=== PATIENT | male | born 1955 | race Caucasian/White ===

== ENCOUNTER 2019-02-23 18:10 | Emergency (ER) | payer MEDICARE, OTHER ==
[2019-02-23] MEDS: LORAZEPAM 1 MG TAB PO (21:40)
[2019-02-23 22:26] LABS: TROPONIN-I < 0.012 ng/ml (0.000-0.120)
[2019-02-23] MEDS ORDERED: KETOROLAC 30 MG INJ IM (22:54)
[2019-02-23] MEDS: IBUPROFEN 600 MG TAB PO ×2 (22:59→23:05)
[2019-02-23] MEDS: KETOROLAC 15 MG INJ IV (23:00)
== END 2019-02-23 23:18 | disposition home or self-care (01) ==
LOC: E/R 23:18
DX: I10 Essential (primary) hypertension (principal); R60.0 Localized edema; I20.9 Angina pectoris, unspecified; Z79.82 Long term (current) use of aspirin
CPT/HCPCS: 84484; 93005; 96374; 99284-25

== ENCOUNTER 2019-02-24 00:45 | Emergency (ER) | payer MEDICARE | END 2019-02-24 06:15 | disposition home or self-care (01) | LOC: E/R 00:45 | DX: R07.9 Chest pain, unspecified (principal); Z79.01 Long term (current) use of anticoagulants; Z79.82 Long term (current) use of aspirin | CPT/HCPCS: 99282 ==

== ENCOUNTER 2019-03-04 22:18 | Inpatient (IN) | payer MEDICARE, OTHER, MEDICAID ==
[2019-03-04 23:42] LABS: ADD MAN DIFF? NO
[2019-03-04 23:45] LABS: BASOPHILS % 0.3 % (0.0-2.0); EOSINOPHILS # 0.1 10^3/ul (0.0-0.5); EOSINOPHILS % 2.1 % (0.0-7.0); HEMATOCRIT 34.2 % (42.0-52.0); HEMOGLOBIN 10.2 g/dl (14.0-18.0); LYMPHOCYTES # 0.6 10^3/ul (0.8-2.9); LYMPHOCYTES % 9.4 % (15.0-51.0); MEAN CORPUSCULAR HEMOGLOBIN 22.8 pg (29.0-33.0); MEAN CORPUSCULAR HGB CONC 29.8 g/dl (32.0-37.0); MEAN CORPUSCULAR VOLUME 76.3 fl (82.0-101.0); MEAN PLATELET VOLUME 9.3 fl (7.4-10.4); MONOCYTE # 0.9 10^3/ul (0.3-0.9); MONOCYTES % 13.5 % (0.0-11.0); NEUTROPHILS % 74.6 % (39.0-77.0); POSITIVE DIFF @See below; RED BLOOD COUNT 4.48 10^6/ul (4.70-6.10); RED CELL DISTRIBUTION WIDTH 18.2 % (11.5-14.5)
[2019-03-04 23:45] LABS: WHITE BLOOD COUNT 6.7 10^3/ul (4.8-10.8)
[2019-03-04] MEDS: ASPIRIN 325 MG TAB PO (23:56)
[2019-03-04] MEDS: NITROGLYCERIN 2% 1 GM OINT PKT TD (23:56)
[2019-03-04 23:59] LABS: PLATELET COUNT 213 10^3/UL (140-415)
[2019-03-05 00:03] LABS: ANION GAP 9 (5-13); BLOOD UREA NITROGEN 21 mg/dl (7-20); CALCIUM 9.4 mg/dl (8.4-10.2); CARBON DIOXIDE 26 mmol/L (21-31); CHLORIDE 102 mmol/L (97-110); CREATININE 1.06 mg/dl (0.61-1.24); Estimated GFR > 60 mL/min (>60); GLUCOSE 104 mg/dl (70-220); POTASSIUM 4.4 mmol/L (3.5-5.1); SODIUM 137 mmol/L (135-144)
[2019-03-05 00:14] LABS: TROPONIN-I < 0.012 ng/ml (0.000-0.120)
[2019-03-05] MEDS ORDERED: ONDANSETRON 4 MG INJ IV ×2 (01:00→02:00)
[2019-03-05] MEDS: SOD CHLORIDE 0.9% 1,000 ML IV ×2 (01:45→14:02)
[2019-03-05] MEDS ORDERED: DOCUSATE SODIUM 100 MG CAP PO (02:00)
[2019-03-05] MEDS ORDERED: NACL 0.9% 3 ML SYG IV (02:00)
[2019-03-05] MEDS ORDERED: NITROGLYCERIN (SL) 0.4 MG TAB SL (02:00)
[2019-03-05] MEDS ORDERED: BISACODYL (EC) 5 MG TAB PO (02:00)
[2019-03-05] MEDS ORDERED: ACETAMINOPHEN 325 MG TAB PO (02:00)
[2019-03-05] MEDS: ACETAMINOPHEN 325 MG TAB PO (02:04)
[2019-03-05] MEDS: KETOROLAC 15 MG INJ IV (02:49)
[2019-03-05 05:23] LABS: CREATINE KINASE 425 IU/L (23-200)
[2019-03-05 05:24] LABS: CHOL/HDL RATIO 3.2 RATIO; HDL CHOLESTEROL 34 mg/dl (30-78); LDL CHOLESTEROL,CALCULATED 58 mg/dl; TRIGLYCERIDES 100 mg/dl (0-149)
[2019-03-05 05:24] LABS: CHOLESTEROL 112 mg/dl (100-200)
[2019-03-05 05:25] LABS: HEMOGLOBIN A1C 5.7 % (0-5.9)
[2019-03-05 05:35] LABS: CK INDEX 0.9; CK-MB 3.85 ng/ml (0.0-2.4); TROPONIN-I < 0.012 ng/ml (0.000-0.120)
[2019-03-05] MEDS ORDERED: LIDOCAINE 1% (MPF) 5 ML VIAL SC (06:00)
[2019-03-05] MEDS: ASPIRIN 81 MG TAB PO (08:16)
[2019-03-05] MEDS: AMLODIPINE 10 MG TAB PO (08:16)
[2019-03-05] MEDS ORDERED: ASPIRIN 81 MG TAB PO (09:00)
[2019-03-05] MEDS ORDERED: METOPROLOL 100 MG TAB PO (09:00)
[2019-03-05] MEDS ORDERED: PRASUGREL HYDROCHLORIDE 10 MG TABLET PO (13:00)
[2019-03-05] MEDS ORDERED: PRASUGREL HCL 5 MG TABLET PO (13:00)
[2019-03-05] MEDS: RANOLAZINE (SR) 500 MG TAB PO ×2 (13:10→20:24)
[2019-03-05] MEDS: CLOPIDOGREL 75 MG TAB PO (13:10)
[2019-03-05] MEDS: ISOSORBIDE MONONITRATE(SR)60 MG TAB PO (13:10)
[2019-03-05] MEDS: LISINOPRIL 10 MG TAB PO (13:11)
[2019-03-05 18:21] LABS: CREATINE KINASE 404 IU/L (23-200)
[2019-03-05 18:33] LABS: CK INDEX 0.9; TROPONIN-I < 0.012 ng/ml (0.000-0.120)
[2019-03-05 18:42] LABS: CK-MB 3.79 ng/ml (0.0-2.4)
[2019-03-05] MEDS: ATORVASTATIN 80 MG TAB PO (20:25)
[2019-03-05] MEDS: traMADol 50 MG TAB PO (20:25)
[2019-03-06] MEDS: POLYETHYLENE GLYCOL 17 GM PACKET PO ×2 (00:51→09:00)
[2019-03-06] MEDS: SOD CHLORIDE 0.9% 1,000 ML IV ×2 (02:32→15:02)
[2019-03-06 07:59] LABS: ADD MAN DIFF? NO
[2019-03-06 08:08] LABS: BASOPHILS % 0.2 % (0.0-2.0); EOSINOPHILS # 0.1 10^3/ul (0.0-0.5); EOSINOPHILS % 2.7 % (0.0-7.0); HEMOGLOBIN 8.9 g/dl (14.0-18.0); LYMPHOCYTES # 0.6 10^3/ul (0.8-2.9); LYMPHOCYTES % 15.7 % (15.0-51.0); MEAN CORPUSCULAR HEMOGLOBIN 23.1 pg (29.0-33.0); MEAN CORPUSCULAR HGB CONC 29.7 g/dl (32.0-37.0); MEAN CORPUSCULAR VOLUME 77.9 fl (82.0-101.0); MEAN PLATELET VOLUME 9.7 fl (7.4-10.4); MONOCYTE # 0.6 10^3/ul (0.3-0.9); MONOCYTES % 15.7 % (0.0-11.0); NEUTROPHIL # 2.6 10^3/ul (1.6-7.5); NEUTROPHILS % 65.2 % (39.0-77.0); PLATELET COUNT 192 10^3/UL (140-415); RED BLOOD COUNT 3.85 10^6/ul (4.70-6.10); RED CELL DISTRIBUTION WIDTH 18.5 % (11.5-14.5)
[2019-03-06 08:26] LABS: IRON 31 ug/dl (35-150)
[2019-03-06 08:31] LABS: ALANINE AMINOTRANSFERASE 28 IU/L (13-69); ALBUMIN 3.6 g/dl (3.3-4.9); ALBUMIN/GLOBULIN RATIO 1.33; ALKALINE PHOSPHATASE 116 IU/L (42-121); ANION GAP 9 (5-13); ASPARTATE AMINO TRANSFERASE 24 IU/L (15-46); BILIRUBIN,INDIRECT 0.1 mg/dl (0-1.1); BILIRUBIN,TOTAL 0.1 mg/dl (0.2-1.3); BLOOD UREA NITROGEN 24 mg/dl (7-20); CALCIUM 9.4 mg/dl (8.4-10.2); CARBON DIOXIDE 23 mmol/L (21-31); CHLORIDE 109 mmol/L (97-110); Estimated GFR > 60 mL/min (>60); GLUCOSE 128 mg/dl (70-220); POTASSIUM 4.2 mmol/L (3.5-5.1); SODIUM 141 mmol/L (135-144); TOTAL PROTEIN 6.3 g/dl (6.1-8.1)
[2019-03-06 08:36] LABS: % IRON SATURATION 8 % SAT (22-52); TOTAL IRON BINDING CAPACITY 407 ug/dl (241-421)
[2019-03-06] MEDS: ISOSORBIDE MONONITRATE(SR)60 MG TAB PO (08:59)
[2019-03-06] MEDS: LISINOPRIL 10 MG TAB PO (09:00)
[2019-03-06] MEDS: ASPIRIN 81 MG TAB PO (09:00)
[2019-03-06] MEDS: CLOPIDOGREL 75 MG TAB PO (09:00)
[2019-03-06] MEDS: AMLODIPINE 10 MG TAB PO (09:00)
[2019-03-06] MEDS: RANOLAZINE (SR) 500 MG TAB PO ×2 (09:00→20:31)
[2019-03-06 09:03] LABS: FERRITIN 8.6 ng/ml (11.1-264.0)
[2019-03-06] MEDS: SOD FERRIC GLUC COMPLX 125 MG in SOD CHLORIDE 0.9% 100 ML IVPB (17:19)
[2019-03-06] MEDS: AL HYDROX/MG HYDROX/SIMETH 30 ML CUP PO (17:54)
[2019-03-06] MEDS: ATORVASTATIN 80 MG TAB PO (20:31)
[2019-03-07] MEDS: predniSONE 50 MG TAB PO ×2 (00:39→06:32)
[2019-03-07] MEDS: ONDANSETRON 4 MG TAB PO (01:31)
[2019-03-07] MEDS: SOD CHLORIDE 0.9% 1,000 ML IV (03:32)
[2019-03-07] MEDS ORDERED: DIAZEPAM 5 MG TAB PO (12:00)
[2019-03-07] MEDS ORDERED: DIPHENHYDRAMINE 50 MG CAP PO (12:00)
[2019-03-07] MEDS ORDERED: predniSONE 50 MG TAB PO (12:30)
== END 2019-03-07 07:00 | disposition left against medical advice (07) | DRG 303 ==
LOC: E/R 22:18 → TEL 03-05 00:59
DX: I25.118 Atherosclerotic heart disease of native coronary artery with other forms of angina pectoris (principal); C91.41 Hairy cell leukemia, in remission; I13.0 Hypertensive heart and chronic kidney disease with heart failure and stage 1 through stage 4 chronic kidney disease, or unspecified chronic kidney disease; N18.9 Chronic kidney disease, unspecified; I50.9 Heart failure, unspecified; D50.9 Iron deficiency anemia, unspecified; E78.5 Hyperlipidemia, unspecified; Z95.5 Presence of coronary angioplasty implant and graft; Z79.82 Long term (current) use of aspirin; Z88.0 Allergy status to penicillin; Z88.2 Allergy status to sulfonamides; Z82.49 Family history of ischemic heart disease and other diseases of the circulatory system
CPT/HCPCS: 71045; 80048; 80053; 80061; 82550; 82553; 82728; 83036; 83540; 84443; 84484; 85025; 93005; 93306; 99285-25

== ENCOUNTER 2019-03-19 16:37 | Emergency (ER) | payer MEDICARE | END 2019-03-19 18:05 | disposition home or self-care (01) | LOC: E/R 16:37 | DX: R07.9 Chest pain, unspecified (principal); I10 Essential (primary) hypertension; Z79.01 Long term (current) use of anticoagulants; Z79.82 Long term (current) use of aspirin | CPT/HCPCS: 93005; 99283-25 ==

== ENCOUNTER 2019-03-29 16:03 | Emergency (ER) | payer SELFPAY, MEDICARE | END 2019-03-29 17:46 | disposition left against medical advice (07) | LOC: E/R 16:03 | DX: R07.9 Chest pain, unspecified (principal); G89.4 Chronic pain syndrome; I10 Essential (primary) hypertension; Z76.5 Malingerer [conscious simulation]; Z79.01 Long term (current) use of anticoagulants; Z79.82 Long term (current) use of aspirin; Z98.61 Coronary angioplasty status | CPT/HCPCS: 99283; 99283-25 ==

== ENCOUNTER 2019-04-24 07:30 | Emergency (ER) | payer MEDICARE | END 2019-04-24 09:45 | disposition left against medical advice (07) | LOC: E/R 07:30 | DX: F41.9 Anxiety disorder, unspecified (principal); I11.0 Hypertensive heart disease with heart failure; I50.9 Heart failure, unspecified; I25.10 Atherosclerotic heart disease of native coronary artery without angina pectoris; Z79.02 Long term (current) use of antithrombotics/antiplatelets; Z98.61 Coronary angioplasty status; Z79.82 Long term (current) use of aspirin | CPT/HCPCS: 93005; 99283-25 ==

== ENCOUNTER 2019-07-07 13:04 | Emergency (ER) | payer MEDICARE | END 2019-07-07 13:46 | disposition home or self-care (01) | LOC: E/R 13:04 | DX: I10 Essential (primary) hypertension (principal); Z79.01 Long term (current) use of anticoagulants; Z79.82 Long term (current) use of aspirin | CPT/HCPCS: 93005; 99283-25 ==